=== PATIENT | female | born 1965 | race Caucasian/White ===

== ENCOUNTER 2018-11-26 05:22 | Day surgery (SDC) | payer MEDICAID ==
[2018-11-22 09:44] LABS: APPEARANCE,URINE CLEAR; BILIRUBIN,URINE NEGATIVE (NEGATIVE); COLOR,URINE STRAW; GLUCOSE, URINE NEGATIVE (NEGATIVE); KETONES,URINE NEGATIVE (NEGATIVE); LEUKOCYTE ESTERASE,URINE NEGATIVE (NEGATIVE); NITRITE,URINE NEGATIVE (NEGATIVE); PROTEIN,URINE NEGATIVE (NEGATIVE); URINE SPECIFIC GRAVITY 1.003; UROBILINOGEN,URINE NEGATIVE mg/dL (<2.0)
[2018-11-22 09:48] LABS: HEMATOCRIT 40.1 % (36.0-47.0); HEMOGLOBIN 13.6 g/dL (12.0-15.5); MEAN CORPUSCULAR HEMOGLOBIN 31.4 pg (27.0-33.4); MEAN CORPUSCULAR HGB CONC 33.9 g/dL (32.0-36.0); MEAN CORPUSCULAR VOLUME 93 fl (80-97); PLATELET COUNT 146 10^3/uL (150-450); RED BLOOD COUNT 4.32 10^6/uL (3.72-5.28); RED CELL DISTRIBUTION WIDTH 12.8 % (11.5-14.0); WHITE BLOOD COUNT 8.6 10^3/uL (4.0-10.5)
[2018-11-22 10:01] LABS: ANION GAP 6 (5-19); BLOOD UREA NITROGEN 15 mg/dL (7-20); CALCIUM 8.8 mg/dL (8.4-10.2); CARBON DIOXIDE 30 mmol/L (22-30); CHLORIDE 104 mmol/L (98-107); GLUCOSE 80 mg/dL (75-110); POTASSIUM 4.4 mmol/L (3.6-5.0)
--- NOTE | 2018-11-22 10:14 | RADIOLOGY REPORT (SQ) ---
EXAM DESCRIPTION: CHEST PA/LATERAL COMPLETED DATE/TIME: 11/22/2018 10:03 am REASON FOR STUDY: PRE-OP COMPARISON: 06/18/2009 EXAM PARAMETERS: NUMBER OF VIEWS: two views TECHNIQUE: Digital Frontal and Lateral radiographic views of the chest acquired. RADIATION DOSE: NA LIMITATIONS: none FINDINGS: LUNGS AND PLEURA: No focal opacities, masses or pneumothorax. No pleural effusion. MEDIASTINUM AND HILAR STRUCTURES: No masses or contour abnormalities. HEART AND VASCULAR STRUCTURES: Heart normal size. No evidence for failure. BONES: Dextroconvex thoracic curvature. Levoconvex lumbar curvature. HARDWARE: None in the chest. OTHER: No other significant finding. IMPRESSION: No evidence of acute cardiopulmonary process. TECHNICAL DOCUMENTATION: JOB ID: [id number] [employer]- All Rights Reserved Reading location - IP/workstation name: [email or web address]
[~2018-11-26 05:22] MED LIST: CLINDAMYCIN 600 MG/D5W RTU 600 MG/50 ML RTUPB IV PRN; LACTATED RINGERS 1000 ML IV PRN; LIDOCAINE 0.5% INJ-PF (5 MG/ML) 50 ML SDV SUBCUT PRN
[2018-11-26] MEDS ORDERED: FENTANYL CITRATE INJ/PF 100 MCG/2 ML AMPUL ONE ×2 (06:24→08:22)
[2018-11-26] MEDS ORDERED: ONDANSETRON HCL INJ/PF 4 MG/2 ML SDV ONE ×2 (06:24→08:44)
[2018-11-26] MEDS ORDERED: MIDAZOLAM 2 MG/2 ML INJ ONE (06:24)
[2018-11-26] MEDS ORDERED: PROPOFOL INJ 200 MG/20 ML VIAL IV ONE (06:25)
[2018-11-26] MEDS ORDERED: CLINDAMYCIN 600 MG/D5W RTU 600 MG/50 ML RTUPB IV ONE (06:26)
[2018-11-26] MEDS ORDERED: LIDOCAINE 0.5% INJ-PF (5 MG/ML) 50 ML SDV ONE (06:29)
[2018-11-26] MEDS ORDERED: ALBUTEROL SULFATE 0.083% NEB 2.5 MG/3 ML AMPUL NEB ONE (06:40)
[2018-11-26] MEDS ORDERED: LEVALBUTEROL HCL NEB 1.25 MG/3 ML AMPUL NEB ONE (06:48)
[2018-11-26] MEDS ORDERED: FENTANYL CITRATE INJ/PF 100 MCG/2 ML AMPUL IV PRN ×3 (06:59)
[2018-11-26] MEDS ORDERED: MEPERIDINE HCL/PF INJ 25 MG/1 ML DISP.SYRIN IV PRN (06:59)
[2018-11-26] MEDS ORDERED: DIPHENHYDRAMINE HCL 50 MG/ML VIAL IV PRN (06:59)
[2018-11-26] MEDS ORDERED: ONDANSETRON HCL INJ/PF 4 MG/2 ML SDV IV PRN (06:59)
[2018-11-26] MEDS ORDERED: PROMETHAZINE HCL INJ 25 MG/1 ML VIAL IV PRN ×2 (06:59)
--- NOTE | 2018-11-26 07:01 | EKG REPORT ---
SEVERITY:- ABNORMAL ECG - SINUS TACHYCARDIA VENTRICULAR BIGEMINY PROBABLE LEFT ATRIAL ABNORMALITY NONSPECIFIC IVCD WITH LAD : Confirmed by: Annamaria Shahid 26-Nov-2018 07:00:16
[2018-11-26] MEDS ORDERED: BUPIVACAINE HCL 0.25 % INJ/PF (2.5 MG/1 ML) 30 ML VIAL ONE (07:08)
[2018-11-26] MEDS ORDERED: BUPIVACAINE HCL 0.25% /EPINEPHRINE INJ/PF 30 ML SDV ONE (07:38)
--- NOTE | 2018-11-26 07:52 | Discharge Summary ---
Discharge Summary (SDC) - Discharge Final Diagnosis: Left olecranon bursitis Date of Surgery: 11/26/18 Discharge Date: 11/26/18 Condition: Good Treatment or Instructions: Elevate left upper extremity Prescriptions: Hydrocodone/Acetaminophen [Vicodin 5-300 mg Tablet] 1 each PO Q6 PRN #40 tablet PRN Reason: For Pain Referrals: BARBARA GOMES MD [Primary Care Provider] - Discharge Diet: As Tolerated, Regular Respiratory Treatments at Home: Deep Breathing/Coughing Discharge Activity: Balance Activity w/Rest, No tub bath Home Care Assistance: None Needed Report the Following to Your Physician Immediately: Shortness of Breath, Fever over 101 Degrees, Drainage-Foul Smelling
--- NOTE | 2018-11-26 07:54 | Operative Report ---
Operative Report DATE OF SURGERY: 11/26/18 PREOPERATIVE DIAGNOSIS: Left olecranon bursitis OPERATION: Section left olecranon bursa SURGEON: NIKO FOX ANESTHESIA: GA TISSUE REMOVED OR ALTERED: Specimen to pathology ESTIMATED BLOOD LOSS: 25 PROCEDURE: With the patient is sloppy right lateral decubitus position on the operative table the left upper extremities prepped and draped in sterile fashion. The limb is elevated for exsanguination tourniquet inflated 280 torr. A longitudinal incision was made off to the radial side of the ulna. This incision was chosen for 2 reasons. One is to avoid the ulnar nerve and the second is to remove the incision from the apex of the olecranon to improve postoperative wound healing. The incision continues through the dermis and the underlying olecranon bursa is identified. Its enucleated with blunt dissection and delivered from the field. The tourniquet is deflated. Hemostasis obtained with electrocautery. The wound is a irrigated with bulb lavage. The soft tissues are infiltrated with a combination of quarter percent Marcaine with epinephrine. The wound was then closed in layers with interrupted Vicryl followed by nylon. A sterile compressive dressing was applied and the patient's return to the PACU in satisfactory condition.
[2018-11-26] MEDS ORDERED: HYDROCODONE/ACETAMINOPHEN 5-325 MG TABLET PO PRN (08:38)
[2018-11-26] MEDS ORDERED: HYDROCODONE/ACETAMINOPHEN 5-325 MG TABLET ONE (08:56)
[2018-11-26 11:35] VITALS: BP 103/69
== END 2018-11-26 09:50 | disposition home or self-care (01) ==
LOC: OROUT 05:22
PROVIDERS: ATTEND Orthopaedic Surgery
DX: M70.22 Olecranon bursitis, left elbow (principal); J44.9 Chronic obstructive pulmonary disease, unspecified; I25.2 Old myocardial infarction; D64.9 Anemia, unspecified; E07.9 Disorder of thyroid, unspecified; F17.210 Nicotine dependence, cigarettes, uncomplicated
CPT/HCPCS: 36415; 85027; 80048; 81001; 88304 ×2; 71046; 93005; 93010; 24105; J2250; S0077; J3490 ×3; J3010; J2405; J2704; 1710

== ENCOUNTER → 2019-07-29 | Outpatient (CLI) | payer MEDICAID ==
[2019-07-29 12:09] VITALS: BP 109/75
--- NOTE | 2019-07-29 12:09 | ER RDC ASSESSMENT REPORT ---
Intake - In the Last 14 days Have you traveled outside [place]?: No Have you been in close contact with someone CONFIRMED: No Worked in Healthcare?: No - Symptoms Subjective Fever([place] feverish): Yes --How many day(s)?: 3 weeks for all symptoms Chills: Yes Muscule Aches: Yes Runny Nose: Yes Sore Throat: Yes Cough (New or worsening chronic cough): Yes Shortness of breath: Yes Nausea or Vomiting: Yes Headache: Yes Abdominal Pain: Yes Diarrhea(3 or more loose stools in last 24 hours): Yes - Do you have any of the following Chronic lung disease: Asthma or emphysema or COPD: Yes Chronic Lung Disease Comment: COPD Cystic Fibrosis: No Diabetes: No High Blood Pressure: No Cardiovascular Disease: Yes Chronic Kidney Disease: No Chronic Liver Disease: No Chronic blood disorder like Sickle Cell Disease: No Weak immune system due to disease or medication: No Neurologic condition that limits movement: No Developmental delay - Moderate to Severe: No Recent (within past 2 weeks) or current : No Morbid Obesity (>100 pounds over ideal weight): No - Objective Temperature: 99 F Pulse Rate: 86 Respiratory Rate: 14 Blood Pressure: 109/75 O2 Sat by Pulse Oximetry: 94 Objective: Given above, testing performed: flu A/B, rapid strep were negative COVID sent to [facility] If Testing Performed: Test Specimen Type [facility] Disposition: Home; Selfcare General - General Chief Complaint: Flu Symptoms Stated Complaint: Cough with increased phlegm production, GI upset, fever Time Seen by Provider: 07/29/19 11:15 Mode of Arrival: Ambulatory Information source: Patient - [facility] Patient complains to provider of: Cough with increased phlegm production, shortness of breath, fever, GI upse Onset: Other - 3 weeks ago Onset/Duration: Gradual, Persistent Quality of pain: No pain Associated symptoms: Body/muscle aches, Chills, Productive cough, Diarrhea, Fever, Headache, Nausea, Rhinnorhea, Shortness of breath, Sore throat Exacerbated by: Movement, Coughing Relieved by: Remaining still, Other - OTC meds Similar symptoms previously: Yes Recently seen / treated by doctor: Yes - Currently on Z-Cameron prescribed by PCP - Related Data Allergies/Adverse Reactions: codeine Allergy (Intermediate, Verified 11/26/18 05:36) Sulfa (Sulfonamide Antibiotics) Allergy (Intermediate, Verified 11/26/18 05:36) Penicillins Allergy (Verified 11/26/18 05:36) Anaphylaxis Past Medical History - General Information source: Patient - Social History Smoking Status: Current Every Day Smoker Cigarette use (# per day): Yes - 10 Smoking Education Provided: Yes - Past Medical History Cardiac Medical History: Reports: Hx Heart Attack, Hx Hypertension Denies: Hx Coronary Artery Disease Pulmonary Medical History: Reports: Hx COPD Denies: Hx Asthma, Hx Bronchitis, Hx Pneumonia Neurological Medical History: Denies: Hx Cerebrovascular Accident, Hx Seizures Endocrine Medical History: Reports: Hx Hypothyroidism Renal/ Medical History: Reports: None Malignancy Medical History: Reports: None GI Medical History: Reports: None Musculoskeletal Medical History: Reports None Skin Medical History: Reports None Psychiatric Medical History: Reports: Hx Anxiety Traumatic Medical History: Reports: None Infectious Medical History: Reports: None Physical Exam - Vital signs Interpretation: Normal - General General appearance: Appears well, Anxious In distress: None Notes: PHYSICAL EXAMINATION: GENERAL: Well-appearing and in no acute distress. HEAD: Atraumatic, normocephalic. EYES: sclera anicteric, conjunctiva are normal. ENT: nares patent. Moist mucous membranes. NECK: Normal range of motion, supple without lymphadenopathy LUNGS: CTAB and equal, diminished bases. No wheezes rales or rhonchi. HEART: Regular rate and rhythm without murmurs ABDOMEN: Soft, nontender, normal bowel sounds, no guarding. EXTREMITIES: Normal range of motion, no pitting edema. No cyanosis. NEUROLOGICAL: Cranial nerves grossly intact. Normal speech. PSYCH: Anxious, normal affect. SKIN: Warm, Dry, normal turgor Diagnostic Results Laboratory Results: Influenza A/B negative; rapid strep negative Patient Education/Counseling Counseling/Education: Patient presents with upper respiratory symptoms worrisome for possible Covid 19. Patient does not have emergency worrying symptoms such as chest pain, pressure, confusion or cyanosis. She does have some mild to moderate shortness of breath, primarily with exertion, as well as increased phlegm production. Patient has known history of COPD. Patient notes she is currently on a Z-Cameron prescribed by her PCP. Patient appears suitable for discharge. Patient's vital signs are stable and patient is nontoxic in appearance. Good return precautions have been discussed with patient, patient verbalized understanding and is agreeable with discharge plan of care at this time. Guidance for worsening S/SX: As a person under investigation for Covid 19, the [place] department of Health and Human Services, division of public health advises you to adhere to the following guidance until your test results are reported to you. If your test result is positive, you will receive additional information from your provider and your local health department at that time. Remain at home until you are cleared by the health provider or public health authorities. Keep a log of visitors to your home, notify any visitors to your home of your isolation status. If you plan to move to a new address or leave the county, notify the local health department in your County. Call your doctor or seek care if you have an urgent medical need. Before seeking medical care, call ahead to get instructions from the provider before arriving at the medical office clinic or hospital. Notify them that you are being tested for the virus that causes Covid 19 so that arrangements can be made, as necessary, to prevent transmission to others in the healthcare setting. Next, notify the local health department in your county. If a medical emergency arises and you need to call 911, inform the first responders that you are being tested for the virus that causes Covid 19. Next, notify the local health department in your county. RDC Discharge - Discharge Clinical Impression: URI (upper respiratory infection) Qualifiers: URI type: unspecified URI Qualified Code(s): J06.9 - Acute upper respiratory infection, unspecified Condition: Stable Disposition: Home; Selfcare
[2019-07-29 12:31] LABS: A TYPE INFLUENZA AG NEGATIVE (NEGATIVE); B INFLUENZA AG NEGATIVE (NEGATIVE)
== END ==
LOC: RDC 10:47
PROVIDERS: ATTEND Registered Nurse
DX: Z20.828 Contact with and (suspected) exposure to other viral communicable diseases (principal); J06.9 Acute upper respiratory infection, unspecified; R50.9 Fever, unspecified; R05 Cough; R11.2 Nausea with vomiting, unspecified; R51 Headache; J02.9 Acute pharyngitis, unspecified; R10.9 Unspecified abdominal pain; R19.7 Diarrhea, unspecified; J44.9 Chronic obstructive pulmonary disease, unspecified; R06.02 Shortness of breath; I10 Essential (primary) hypertension; Z88.0 Allergy status to penicillin; Z88.2 Allergy status to sulfonamides; Z88.6 Allergy status to analgesic agent; F17.210 Nicotine dependence, cigarettes, uncomplicated; E03.9 Hypothyroidism, unspecified
CPT/HCPCS: 36415; 87070; 87635; 87804; 87880